=== PATIENT | female | born 1960 | race Caucasian/White ===

== ENCOUNTER 2022-08-27 12:32 | Emergency (ER) | payer OTHER, SELFPAY ==
[2022-08-27 12:47] VITALS: BP 146/73; PULSE 82; RESP 14; TEMP 37.3; O2SAT 97; BMI 19.8
--- NOTE | 2022-08-27 12:54 | DI.RAD.S_ITS ---
PROCEDURE: XR CHEST 2V INDICATIONS: cough, URI, recent covid TECHNIQUE: 2 views of the chest were acquired. COMPARISON: None. FINDINGS: Surgical changes and devices: None. Lungs and pleura: Lungs are clear. No pleural effusions or pneumothorax. Mediastinum: Mediastinal contours are normal. Heart size is normal. Bones and chest wall: No suspicious bony abnormalities. Soft tissues appear unremarkable. IMPRESSION: No acute cardiopulmonary abnormality. Dictated by: Keith Aiken M.D. on 08/27/2022 at 13:03 Approved by: Keith Aiken M.D. on 08/27/2022 at 13:11
[2022-08-27 13:42] LABS: Influenza A - CEPHEID Flu A NEGATIVE (NEGATIVE); Influenza B - CEPHEID Flu B NEGATIVE (NEGATIVE); Respiratory Syncytial Virus Negative (Negative)
--- NOTE | 2022-08-27 13:42 | ED.URI ---
HPI - URI/Sore Throat <Sayda Sullivan PA-C - Last Filed: 08/27/22 15:42> General Chief Complaint: Upper Respiratory Symptoms Stated Complaint: bronchitis Time Seen by Provider: 08/27/22 13:03 Source: patient Mode of arrival: Ambulatory History of Present Illness HPI Narrative: Patient is very pleasant 62 years old female, light smoker, cigarettes, presents with shortness of breath, cough persistent, some wheezing for last 5 days. Her cough is productive with green-yellow sputum. Her cough is worsened in p.m., coming in cough fits. She denies fever chills, admits to feeling exhausted and achy. Patient is quite concerned as she is prone to pneumonia and bronchitis, and feels that [id number] preparations are just not effective.. Related Data Previous Rx's Medication Instructions Recorded albuterol sulfate 90 mcg/actuation 1 inh inhalation QID cough #8.5 08/27/22 aerosol inhaler (Proventil HFA) grams azithromycin 250 mg tablet See Rx Instructions PO .COMPLEX #6 08/27/22 (Zithromax) tabs codeine 10 mg-guaifenesin 200 mg/5 5 ml PO Q6H PRN cough #473 mL 08/27/22 mL oral liquid inhalational spacing device #10 ea 08/27/22 (Aerochamber MV spacer) methylprednisolone 4 mg tablets in 4 mg PO DAILY #21 ea 08/27/22 a dose pack (Medrol (Darius)) Allergies Allergy/AdvReac Type Severity Reaction Status Date / Time levofloxacin [From Levaquin] Allergy Unknown Verified 08/27/22 13:58 Review of Systems <Sayda Sullivan PA-C - Last Filed: 08/27/22 15:42> Review of Systems Narrative: Pertinent review of systems is otherwise normal unless stated in HPI Patient History <Sayda Sullivan PA-C - Last Filed: 08/27/22 15:42> Social History Smoking Status: Current every day smoker Smoking Status: Current every day smoker Substance Use Type: does not use Exam <Sayda Sullivan PA-C - Last Filed: 08/27/22 15:42> Narrative Exam Narrative: GENERAL: 62 year old patient appears stated age. Well-developed patient, in mild distress due to dry cough. HEAD: Atraumatic. Normocephalic. EYES: Pupils equal round and reactive. Extraocular motions intact. No scleral icterus. No injection or drainage. ENT: Nasal passages narrowed with clear discharge. Both nostrils Without bleeding, purulent drainage. Throat with patchy erythema, there is no tonsillar hypertrophy or exudate. Airway patent. NECK: Trachea midline. Non tender CARDIOVASCULAR: Regular rate and rhythm without murmurs, gallops, or rubs. RESPIRATORY: Diffuse wheezing at posterior lobes coarse breath sounds at anterior lobes there are scattered rhonchi at posterior lobes. GASTROINTESTINAL: Abdomen soft, non-tender, nondistended. EXTREMITIES: No edema or joint tenderness. BACK: Nontender without deformity or crepitance. No flank tenderness. NEURO: AOx3. SKIN: No rash or erythema of visible areas Initial Vital Signs Initial Vital Signs: Vital Signs Temperature 99.2 F 08/27/22 12:47 Pulse Rate 82 08/27/22 12:47 Respiratory Rate 14 08/27/22 12:47 Blood Pressure 146/73 H 08/27/22 12:47 Pulse Oximetry 97 08/27/22 12:47 Oxygen Delivery Method 08/27/22 12:47 <Aman Vazquez DO - Last Filed: 08/27/22 17:55> Initial Vital Signs Initial Vital Signs: Vital Signs Temperature 99.2 F 08/27/22 12:47 Pulse Rate 82 08/27/22 12:47 Respiratory Rate 14 08/27/22 12:47 Blood Pressure 146/73 H 08/27/22 12:47 Pulse Oximetry 97 08/27/22 12:47 Oxygen Delivery Method 08/27/22 12:47 Course <Sayda Sullivan PA-C - Last Filed: 08/27/22 15:42> Orders Ordered: ED Orders 08/27/22 12:54 XR chest 2V Stat 08/27/22 12:56 Covid-19 + FLU A/B + RSV - PCR Stat Vital Signs Vital signs: Vital Signs - 8 hr 08/27/22 12:47 08/27/22 14:14 Temperature 99.2 F Pulse Rate 82 82 Respiratory Rate 14 18 Blood Pressure 146/73 H 137/75 Pulse Oximetry 97 100 Oxygen Delivery Method Room Air Room Air <Aman Vazquez DO - Last Filed: 08/27/22 17:55> Orders Ordered: ED Orders 08/27/22 12:54 XR chest 2V Stat 08/27/22 12:56 Covid-19 + FLU A/B + RSV - PCR Stat Vital Signs Vital signs: Vital Signs - 8 hr 08/27/22 12:47 08/27/22 14:14 Temperature 99.2 F Pulse Rate 82 82 Respiratory Rate 14 18 Blood Pressure 146/73 H 137/75 Pulse Oximetry 97 100 Oxygen Delivery Method Room Air Room Air MDM - URI/Sore Throat <Sayda Sullivan PA-C - Last Filed: 08/27/22 15:42> Lab Data Labs: Lab Results 08/27/22 Range/Units 12:56 SARS-CoV-2 (PCR) Negative (Negative) Influenza A (RT-PCR) Flu a negative (NEGATIVE) Influenza B (RT-PCR) Flu b negative (NEGATIVE) RSV (PCR) Negative (Negative) Imaging Data Chest x-ray: Radiologist's Impression: Lungs and pleura:? Lungs are clear.? No pleural effusions or pneumothorax.? ? Mediastinum:? Mediastinal contours are normal.? Heart size is normal.? ? Bones and chest wall:? No suspicious bony abnormalities.? Soft tissues appear unremarkable.? ? IMPRESSION:? No acute cardiopulmonary abnormality. MDM Narrative Medical decision making narrative: Imaging laboratory data reviewed. Viral panel is neg for nfluenza, covid 19 and RSV Physical exam supports diagnosis of acute bronchitis with bronchospasm, perhaps exacerbation of COPD. Vital signs are stable. Patient will be treated with Zithromax,medrol dose pack, Albuterol inhaler, cough syrup Advised to seek attention if her sx are worsened. <Aman Vazquez DO - Last Filed: 08/27/22 17:55> Lab Data Labs: Lab Results 08/27/22 Range/Units 12:56 SARS-CoV-2 (PCR) Negative (Negative) Influenza A (RT-PCR) Flu a negative (NEGATIVE) Influenza B (RT-PCR) Flu b negative (NEGATIVE) RSV (PCR) Negative (Negative) Discharge Plan Departure Patient Disposition: Home Clinical Impression: Bronchitis Upper respiratory infection Qualifiers: URI type: acute nasopharyngitis (common cold) Qualified Code(s): J00 - Acute nasopharyngitis [common cold] Instructions: DI for Bronchiolitis Activity Restrictions/Additional Instructions: *You have been diagnosed with Acute Bronchitis n setting of Upper respiratory infection ( not RSV, influenza A/B, COVID-19) *What to do: *Please continue to take your regular medications as directed. New medication prescriptions sent to your pharmacy: Z-Darius, Medrol Dosepak, albuterol inhaler, codeine of his guaifenesin cough syrup *Please follow up with your primary care provider in 2-3 days, call for an appointment. Let them know you were seen in the Emergency Department and that we ask that you be seen in follow up. We will electronically transmit a record of today's note if your PCP is in our system *If you do not have a primary care provider please contact the [facility] Resource line at [phone]. They will ask some questions about your medical history and help get you set up with a doctor in the community. *Return to Emergency Department if you should have any new, worsening or concerning symptoms, such asfever greater than 101 F, shaking chills, worsening pain, persistent vomiting or other bothersome symptoms Prescriptions: New methylprednisolone [Medrol (Darius)] 4 mg tablets,dose pack 4 mg PO DAILY Qty: 21 0RF Rx Instructions: take as directed on package azithromycin [Zithromax] 250 mg tablet See Rx Instructions .ROUTE .COMPLEX Qty: 6 0RF Rx Instructions: For 250 mg dose pack: take 500 mg today (day 1), then 250 mg for 4 days (days 2-5) albuterol sulfate [Proventil HFA] 90 mcg/actuation HFA aerosol inhaler 1 inh inhalation QID Qty: 8.5 0RF (DME) Aerochamber MV Spacer See Rx Instructions .Route Qty: 10 0RF Rx Instructions: As directed codeine-guaifenesin 10-200 mg/5 mL liquid 5 ml PO Q6H PRN (Reason: cough) Qty: 473 0RF Referrals: Abida Duarte PA-C [Primary Care Provider] - Visit Report Forms: Patient Portal/API <Aman Vazquez DO - Last Filed: 08/27/22 17:55> Cosign ED Attending Cospjature Attestation: Dr Vazquez Co-Sign Statement: I was available for consultation during this patient's emergency department visit. This chart is signed by myself for administrative purposes only. I did not have direct contact with this patient during this visit. They were seen independently by the APC.
[2022-08-27 13:43] LABS: COVID-19 CEPHEID 4-PLEX PCR Negative (Negative)
[2022-08-27 14:14] VITALS: BP 137/75; PULSE 82; RESP 18; O2SAT 100
== END 2022-08-27 14:17 | disposition home or self-care (01) ==
PROVIDERS: Emergency Medicine; Emergency Provider Physician Assistant Medical; PCP Physician Assistant Medical
DX: J40 Bronchitis, not specified as acute or chronic (principal); Z20.822 Contact with and (suspected) exposure to COVID-19
CPT/HCPCS: 0241U; 71046; 99283

== ENCOUNTER 2022-09-07 12:40 | Emergency (ER) | payer OTHER, SELFPAY ==
--- NOTE | 2022-09-07 12:47 | PC.NURSE ---
called for triage. Not in waiting room. Registration states she went outside.
[2022-09-07 13:09] VITALS: BP 122/80; PULSE 118; RESP 24; TEMP 37.7; O2SAT 98; BMI 22.6
--- NOTE | 2022-09-07 13:16 | DI.RAD.S_ITS ---
PROCEDURE: XR CHEST 1V INDICATIONS: Suspected sepsis TECHNIQUE: One view of the chest was acquired. COMPARISON: None. FINDINGS: Surgical changes and devices: None. Lungs and pleura: Lungs are clear. No pleural effusions or pneumothorax. Mediastinum: Mediastinal contours appear normal. Heart size is normal. Bones and chest wall: No suspicious bony lesions. Overlying soft tissues appear unremarkable. IMPRESSION: No acute cardiopulmonary process demonstrated radiographically. Dictated by: Melecio Hopson M.D. on 09/07/2022 at 13:43 Approved by: Melecio Hopson M.D. on 09/07/2022 at 13:44
[2022-09-07 13:43] LABS: Add Manual Diff / Slide Review NO; Basophils Absolute Auto 100 /uL (0-100); Basophils Percent Auto 1.5 % (0-2); Eosinophils Absolute Auto 300 /uL (0-450); Eosinophils Percent Auto 3.8 % (2-4); Hematocrit 38.9 % (36-46); Hemoglobin 13.4 g/dL (12.0-16.0); Lymphocytes Absolute Auto 2300 /uL (1100-4500); Lymphocytes Percent Auto 25.2 % (25-40); Mean Corpuscular HGB Conc 34.5 % (30-36); Mean Corpuscular Hemoglobin 34.3 PG (26-34); Mean Corpuscular Volume 99.5 fL (80-100); Monocytes Absolute Auto 700 /uL (0-900); Monocytes Percent Auto 8.1 % (3-14); Neutrophils Absolute Auto 5500 /uL (1500-7000); Neutrophils Percent Auto 61.4 % (50-75); Platelet Count 409 X10^3/uL (150-400); Red Blood Cell Count 3.91 X10^6/uL (4.0-5.2); Red Cell Distribution Width 13.2 % (11.6-14.8); White Blood Cell Count 8.9 X10^3/uL (4.5-11.0)
--- NOTE | 2022-09-07 13:48 | ED.FEVER ---
HPI - Fever <Lupe Tolentino PA-C - Last Filed: 09/07/22 20:06> General Chief Complaint: Fever Stated Complaint: Bronchitis, Worsening Time Seen by Provider: 09/07/22 13:29 Source: patient Mode of arrival: Ambulatory History of Present Illness HPI Narrative: 62-year-old female, current smoker presents to the ED for cough, diarrhea. Patient was seen in the ED on 08/27/2022, diagnosed with acute bronchitis. Patient states that she took the medications as prescribed, however her symptoms have minimally improved. Patient endorses subjective fever, chills, cough, intermittent nausea, vomiting once a day, diarrhea. Patient denies chest pain, shortness of breath. Patient states that she is also currently extremely depressed due to being newly homeless, lives in a hotel, is all alone by herself. Patient is asking to be started on antidepressants today in the ED and to get a psych consult. Patient denies suicidal ideation, homicidal ideation. Related Data Previous Rx's Medication Instructions Recorded albuterol sulfate 90 mcg/actuation 1 inh inhalation QID cough #8.5 08/27/22 aerosol inhaler (Proventil HFA) grams azithromycin 250 mg tablet See Rx Instructions PO .COMPLEX #6 08/27/22 (Zithromax) tabs codeine 10 mg-guaifenesin 200 mg/5 5 ml PO Q6H PRN cough #473 mL 08/27/22 mL oral liquid inhalational spacing device #10 ea 08/27/22 (Aerochamber MV spacer) methylprednisolone 4 mg tablets in 4 mg PO DAILY #21 ea 08/27/22 a dose pack (Medrol (Darius)) codeine 6.3 mg-guaifenesin 100 8 ml PO Q6H PRN cough 7 days #473 09/07/22 mg/5 mL oral liquid mL nitrofurantoin 100 mg PO Q12H 5 days #10 caps 09/07/22 monohydrate/macrocrystals 100 mg capsule (Macrobid) Allergies Allergy/AdvReac Type Severity Reaction Status Date / Time levofloxacin [From Levaquin] Allergy Unknown Verified 09/07/22 13:15 Review of Systems <Lupe Tolentino PA-C - Last Filed: 09/07/22 20:06> Review of Systems ROS Unobtainable: All systems reviewed & are unremarkable except as noted in HPI and below Constitutional Constitutional: Reports chills, Reports fatigue, Reports fever(s), Denies frequent falls, Denies lethargy and Denies weakness Eyes Eyes: Denies change in vision, Denies eye discharge, Denies irritation and Denies loss of vision ENT Ears, Nose, Mouth, and Throat: Denies change in voice, Denies dizziness, Denies neck pain, Denies sore throat and Denies throat swelling Cardiovascular Cardiovascular: Denies chest pain, Denies irregular heart rhythm, Denies lightheadedness, Denies palpitations, Denies dyspnea, Denies dyspnea on exertion and Denies orthopnea Respiratory Respiratory: Reports cough, Denies dyspnea, Denies dyspnea on exertion and Denies wheezing Gastrointestinal Gastrointestinal: Denies abdominal pain, Denies change in bowel habits, Reports diarrhea, Reports nausea and Reports vomiting Genitourinary Genitourinary: Denies hematuria, Denies flank pain, Denies urinary incontinence and Denies urinary urgency Musculoskeletal Musculoskeletal: Denies back pain, Denies muscle weakness, Denies neck pain, Denies numbness and Denies tingling Integumentary/Breasts Skin/Breast: Denies pruritus, Denies erythema, Denies rash and Denies wounds Neurologic Neurologic: Denies behavioral changes, Denies confusion, Denies dizziness, Denies frequent falls, Denies loss of vision, Denies numbness, Denies tingling and Denies weakness Psychiatric Psychiatric: Denies anxiety, Denies behavioral changes, Denies confusion, Denies depression, Denies homicidal ideation and Denies suicidal ideation Endocrine Endocrine: Reports fatigue, Denies flushing and Denies palpitations Hematologic/Lymphatic Hematologic/Lymphatic: Denies easy bruising Allergic/Immunologic Allergic/Immunologic: Denies urticaria, Denies throat swelling and Denies wheezing Patient History <Lupe Tolentino PA-C - Last Filed: 09/07/22 20:06> Social History Smoking Status: Current every day smoker Smoking Status: Current every day smoker Substance Use Type: does not use Exam <Lupe Tolentino PA-C - Last Filed: 09/07/22 20:06> Narrative Exam Narrative: Const General:?cooperative, healthy appearing and comfortable HENPA Head:?normal to inspection Ears:?hearing grossly normal bilaterally Nose:?external nose normal Face and sinus:?normal facial exam and sinuses nontender Mouth:?oral mucosae normal Throat:?posterior oropharynx normal Eyes General:?appearance normal, both eyes and all related structures Neck Neck:?normal visual inspection and no lymphadenopathy noted Resp Effort & Inspection:?normal respiratory effort Auscultation:?clear to auscultation bilaterally Cardio Rate:?regular rate Rhythm:?regular rhythm GI Abdomen is soft, nondistended, nontender to palpation. No CVA tenderness. Neuro General:?patient alert, patient awake and patient oriented x3 Initial Vital Signs Initial Vital Signs: Vital Signs Temperature 99.8 F H 09/07/22 13:09 Pulse Rate 118 H 09/07/22 13:09 Respiratory Rate 24 09/07/22 13:09 Blood Pressure 122/80 09/07/22 13:09 Pulse Oximetry 98 09/07/22 13:09 Oxygen Delivery Method 09/07/22 13:09 <Aman Vazquez DO - Last Filed: 09/08/22 07:16> Initial Vital Signs Initial Vital Signs: Vital Signs Temperature 99.8 F H 09/07/22 13:09 Pulse Rate 118 H 09/07/22 13:09 Respiratory Rate 24 09/07/22 13:09 Blood Pressure 122/80 09/07/22 13:09 Pulse Oximetry 98 09/07/22 13:09 Oxygen Delivery Method 09/07/22 13:09 Course <Lupe Tolentino PA-C - Last Filed: 09/07/22 20:06> Orders Ordered: Discontinued Medications Sodium Chloride (Normal Saline 0.9%) 1,000 mls @ 1,000 mls/hr IV BOLUS ONE Stop: 09/07/22 14:14 Last Infusion: 09/07/22 15:13 Dose: 0 mls/hr Documented By: Infusion: 09/07/22 15:13 Dose: 0 mls/hr Documented By: Admin: 09/07/22 14:20 Dose: 1,000 mls/hr Documented By: AVINASH Ondansetron HCl (Ondansetron 4 Mg/2 Ml Inj) 4 mg IV NOW PRN PRN Reason: Nausea And Vomiting Vital Signs Vital signs: Vital Signs - 8 hr 09/07/22 13:09 09/07/22 15:11 Temperature 99.8 F H Pulse Rate 118 H 103 H Respiratory Rate 24 20 Blood Pressure 122/80 Pulse Oximetry 98 99 Oxygen Delivery Method Room Air Room Air <Aman Vazquez DO - Last Filed: 09/08/22 07:16> Orders Ordered: Discontinued Medications Sodium Chloride (Normal Saline 0.9%) 1,000 mls @ 1,000 mls/hr IV BOLUS ONE Stop: 09/07/22 14:14 Last Infusion: 09/07/22 15:13 Dose: 0 mls/hr Documented By: Infusion: 09/07/22 15:13 Dose: 0 mls/hr Documented By: Admin: 09/07/22 14:20 Dose: 1,000 mls/hr Documented By: AVINASH Ondansetron HCl (Ondansetron 4 Mg/2 Ml Inj) 4 mg IV NOW PRN PRN Reason: Nausea And Vomiting Vital Signs Vital signs: Vital Signs - 8 hr 09/07/22 13:09 09/07/22 15:11 Temperature 99.8 F H Pulse Rate 118 H 103 H Respiratory Rate 24 20 Blood Pressure 122/80 Pulse Oximetry 98 99 Oxygen Delivery Method Room Air Room Air MDM - Fever <Lupe Tolentino PA-C - Last Filed: 09/07/22 20:06> Lab Data Result diagrams: 09/07/22 13:27 09/07/22 13:27 Labs: Lab Results 09/07/22 09/07/22 09/07/22 Range/Units 13:27 13:27 13:27 WBC 8.9 (4.5-11.0) X10^3/uL RBC 3.91 L (4.0-5.2) X10^6/uL Hgb 13.4 (12.0-16.0) g/dL Hct 38.9 (36-46) % MCV 99.5 (80-100) fL MCH 34.3 H (26-34) PG MCHC 34.5 (30-36) % RDW 13.2 (11.6-14.8) % Plt Count 409 H (150-400) X10^3/uL Neut % (Auto) 61.4 (50-75) % Lymph % (Auto) 25.2 (25-40) % [place] % (Auto) 8.1 (3-14) % Eos % (Auto) 3.8 (2-4) % Baso % (Auto) 1.5 (0-2) % Neut # (Auto) 5500 (0529-2728) /uL Lymph # (Auto) 2300 (6999-5713) /uL [place] # (Auto) 700 (0-900) /uL Eos # (Auto) 300 (0-450) /uL Baso # (Auto) 100 (0-100) /uL PT 11.3 (10.1-12.7) SECONDS INR 1.0 (0.9-1.3) APTT 26 (26-36) SECONDS Sodium 134 L (137-145) mmol/L Potassium 4.2 (3.4-5.1) mmol/L Chloride 102 (98-107) mmol/L Carbon Dioxide 25 (22-32) mmol/L BUN 25 H (7-17) mg/dL Creatinine 0.66 (0.52-1.04) mg/dL Estimated GFR > 60 (>60) mL/min BUN/Creatinine Ratio 37.9 H (6-22) Glucose 102 (80-110) mg/dL Lactate (0.7-2.1) mmol/L Calcium 9.6 (8.4-10.2) mg/dL Total Bilirubin 0.3 (0.2-1.3) mg/dL AST 26 (14-36) IU/L ALT 30 (<35) IU/L Alkaline Phosphatase 51 (38-126) U/L Total Protein 7.2 (6.3-8.2) g/dL Albumin 4.4 (3.5-5.0) g/dL Globulin 2.8 (1.7-4.1) g/dL Albumin/Globulin Ratio 1.6 (1.0-2.8) Lipase 170 (23-300) U/L Procalcitonin 0.05 (<0.5) ng/mL Urine RBC (0-5/HPF) Urine WBC (0-5/HPF) Urine Bacteria (None) Ur Culture Indicated? SARS-CoV-2 (PCR) (Negative) Influenza A (RT-PCR) (NEGATIVE) Influenza B (RT-PCR) (NEGATIVE) RSV (PCR) (Negative) 09/07/22 09/07/22 09/07/22 Range/Units 13:27 13:27 14:23 WBC (4.5-11.0) X10^3/uL RBC (4.0-5.2) X10^6/uL Hgb (12.0-16.0) g/dL Hct (36-46) % MCV (80-100) fL MCH (26-34) PG MCHC (30-36) % RDW (11.6-14.8) % Plt Count (150-400) X10^3/uL Neut % (Auto) (50-75) % Lymph % (Auto) (25-40) % [place] % (Auto) (3-14) % Eos % (Auto) (2-4) % Baso % (Auto) (0-2) % Neut # (Auto) (6829-6187) /uL Lymph # (Auto) (6450-4283) /uL [place] # (Auto) (0-900) /uL Eos # (Auto) (0-450) /uL Baso # (Auto) (0-100) /uL PT (10.1-12.7) SECONDS INR (0.9-1.3) APTT (26-36) SECONDS Sodium (137-145) mmol/L Potassium (3.4-5.1) mmol/L Chloride (98-107) mmol/L Carbon Dioxide (22-32) mmol/L BUN (7-17) mg/dL Creatinine (0.52-1.04) mg/dL Estimated GFR (>60) mL/min BUN/Creatinine Ratio (6-22) Glucose (80-110) mg/dL Lactate 0.8 (0.7-2.1) mmol/L Calcium (8.4-10.2) mg/dL Total Bilirubin (0.2-1.3) mg/dL AST (14-36) IU/L ALT (<35) IU/L Alkaline Phosphatase (38-126) U/L Total Protein (6.3-8.2) g/dL Albumin (3.5-5.0) g/dL Globulin (1.7-4.1) g/dL Albumin/Globulin Ratio (1.0-2.8) Lipase (23-300) U/L Procalcitonin (<0.5) ng/mL Urine RBC None seen (0-5/HPF) Urine WBC 5-10/hpf H (0-5/HPF) Urine Bacteria Few (2-10) H (None) Ur Culture Indicated? Specimen cultured SARS-CoV-2 (PCR) Positive H (Negative) Influenza A (RT-PCR) Flu a negative (NEGATIVE) Influenza B (RT-PCR) Flu b negative (NEGATIVE) RSV (PCR) Negative (Negative) Urine Dip Bedside Urine Glucose Negative Bedside Urine Bilirubin - Negative Bedside Urine Ketone - Negative Urine Specific [place] 1.010 Bedside Urine Occult Blood - Negative Bedside Urine pH 6 Bedside Urine Protein - Negative Bedside Urine Urobilinogen - Negative Bedside Urine Nitrite - Negative Bedside Urine Leukocytes + 70 Esterase Imaging Data Chest x-ray: Radiologist's Impression: PROCEDURE:? XR CHEST 1V ? INDICATIONS:? Suspected sepsis ? TECHNIQUE:? One view of the chest was acquired.? ? COMPARISON:? None. ? FINDINGS:? ? Surgical changes and devices:? None.? ? Lungs and pleura:? Lungs are clear.? No pleural effusions or pneumothorax.? ? Mediastinum:? Mediastinal contours appear normal.? Heart size is normal.? ? Bones and chest wall:? No suspicious bony lesions.? Overlying soft tissues appear unremarkable.? ? IMPRESSION:? No acute cardiopulmonary process demonstrated radiographically. ? ? Dictated by: Melecio Hopson M.D. on 09/07/2022 at 13:43 ? ? Approved by: Melecio Hopson M.D. on 09/07/2022 at 13:44 ? [facility] Narrative Medical decision making narrative: 62-year-old female, current smoker presents to the ED for cough, diarrhea. Concern for URI versus bronchitis versus pneumonia versus other. Workup was obtained, chest x-ray negative for pneumonia, labs within normal limits. Patient tested positive for COVID-19. UA was positive for UTI. Patient was stable through the ED stay. Patient prescribed cough medication, antibiotic for the UTI. Social work consulted for psych resources. ED return precautions were discussed with patient. Patient verbalized understanding. <Aman Vazquez, DO - Last Filed: 09/08/22 07:16> Lab Data Labs: Lab Results 09/07/22 09/07/22 09/07/22 Range/Units 13:27 13:27 13:27 WBC 8.9 (4.5-11.0) X10^3/uL RBC 3.91 L (4.0-5.2) X10^6/uL Hgb 13.4 (12.0-16.0) g/dL Hct 38.9 (36-46) % MCV 99.5 (80-100) fL MCH 34.3 H (26-34) PG MCHC 34.5 (30-36) % RDW 13.2 (11.6-14.8) % Plt Count 409 H (150-400) X10^3/uL Neut % (Auto) 61.4 (50-75) % Lymph % (Auto) 25.2 (25-40) % [place] % (Auto) 8.1 (3-14) % Eos % (Auto) 3.8 (2-4) % Baso % (Auto) 1.5 (0-2) % Neut # (Auto) 5500 (2686-9080) /uL Lymph # (Auto) 2300 (7961-6108) /uL [place] # (Auto) 700 (0-900) /uL Eos # (Auto) 300 (0-450) /uL Baso # (Auto) 100 (0-100) /uL PT 11.3 (10.1-12.7) SECONDS INR 1.0 (0.9-1.3) APTT 26 (26-36) SECONDS Sodium 134 L (137-145) mmol/L Potassium 4.2 (3.4-5.1) mmol/L Chloride 102 (98-107) mmol/L Carbon Dioxide 25 (22-32) mmol/L BUN 25 H (7-17) mg/dL Creatinine 0.66 (0.52-1.04) mg/dL Estimated GFR > 60 (>60) mL/min BUN/Creatinine Ratio 37.9 H (6-22) Glucose 102 (80-110) mg/dL Lactate (0.7-2.1) mmol/L Calcium 9.6 (8.4-10.2) mg/dL Total Bilirubin 0.3 (0.2-1.3) mg/dL AST 26 (14-36) IU/L ALT 30 (<35) IU/L Alkaline Phosphatase 51 (38-126) U/L Total Protein 7.2 (6.3-8.2) g/dL Albumin 4.4 (3.5-5.0) g/dL Globulin 2.8 (1.7-4.1) g/dL Albumin/Globulin Ratio 1.6 (1.0-2.8) Lipase 170 (23-300) U/L Procalcitonin 0.05 (<0.5) ng/mL Urine RBC (0-5/HPF) Urine WBC (0-5/HPF) Urine Bacteria (None) Ur Culture Indicated? SARS-CoV-2 (PCR) (Negative) Influenza A (RT-PCR) (NEGATIVE) Influenza B (RT-PCR) (NEGATIVE) RSV (PCR) (Negative) 09/07/22 09/07/22 09/07/22 Range/Units 13:27 13:27 14:23 WBC (4.5-11.0) X10^3/uL RBC (4.0-5.2) X10^6/uL Hgb (12.0-16.0) g/dL Hct (36-46) % MCV (80-100) fL MCH (26-34) PG MCHC (30-36) % RDW (11.6-14.8) % Plt Count (150-400) X10^3/uL Neut % (Auto) (50-75) % Lymph % (Auto) (25-40) % [place] % (Auto) (3-14) % Eos % (Auto) (2-4) % Baso % (Auto) (0-2) % Neut # (Auto) (9847-5982) /uL Lymph # (Auto) (8472-2900) /uL [place] # (Auto) (0-900) /uL Eos # (Auto) (0-450) /uL Baso # (Auto) (0-100) /uL PT (10.1-12.7) SECONDS INR (0.9-1.3) APTT (26-36) SECONDS Sodium (137-145) mmol/L Potassium (3.4-5.1) mmol/L Chloride (98-107) mmol/L Carbon Dioxide (22-32) mmol/L BUN (7-17) mg/dL Creatinine (0.52-1.04) mg/dL Estimated GFR (>60) mL/min BUN/Creatinine Ratio (6-22) Glucose (80-110) mg/dL Lactate 0.8 (0.7-2.1) mmol/L Calcium (8.4-10.2) mg/dL Total Bilirubin (0.2-1.3) mg/dL AST (14-36) IU/L ALT (<35) IU/L Alkaline Phosphatase (38-126) U/L Total Protein (6.3-8.2) g/dL Albumin (3.5-5.0) g/dL Globulin (1.7-4.1) g/dL Albumin/Globulin Ratio (1.0-2.8) Lipase (23-300) U/L Procalcitonin (<0.5) ng/mL Urine RBC None seen (0-5/HPF) Urine WBC 5-10/hpf H (0-5/HPF) Urine Bacteria Few (2-10) H (None) Ur Culture Indicated? Specimen cultured SARS-CoV-2 (PCR) Positive H (Negative) Influenza A (RT-PCR) Flu a negative (NEGATIVE) Influenza B (RT-PCR) Flu b negative (NEGATIVE) RSV (PCR) Negative (Negative) Urine Dip Bedside Urine Glucose Negative Bedside Urine Bilirubin - Negative Bedside Urine Ketone - Negative Urine Specific [place] 1.010 Bedside Urine Occult Blood - Negative Bedside Urine pH 6 Bedside Urine Protein - Negative Bedside Urine Urobilinogen - Negative Bedside Urine Nitrite - Negative Bedside Urine Leukocytes + 70 Esterase Discharge Plan Departure Patient Disposition: Home Clinical Impression: COVID-19 Instructions: COVID-19 Activity Restrictions/Additional Instructions: You were evaluated in the ED today for bronchitis. You tested positive for COVID. Your bronchitis is likely from the COVID-19 infection. You may continue to take cough medications, use your albuterol inhaler as needed. You were also diagnosed with a urinary tract infection for which you are being prescribed antibiotics. Please complete the full course of antibiotics. Return to the ED if you experience shortness of breath, chest pain. Prescriptions: New nitrofurantoin monohyd/m-cryst [Macrobid] 100 mg capsule 100 mg PO Q12H 5 Days Qty: 10 0RF Rx Instructions: must administer with a meal/food codeine-guaifenesin 6.3-100 mg/5 mL liquid 8 ml PO Q6H PRN (Reason: cough) 7 Days Qty: 473 0RF No Action methylprednisolone [Medrol (Darius)] 4 mg tablets,dose pack 4 mg PO DAILY Qty: 21 0RF Rx Instructions: take as directed on package azithromycin [Zithromax] 250 mg tablet See Rx Instructions .ROUTE .COMPLEX Qty: 6 0RF Rx Instructions: For 250 mg dose pack: take 500 mg today (day 1), then 250 mg for 4 days (days 2-5) albuterol sulfate [Proventil HFA] 90 mcg/actuation HFA aerosol inhaler 1 inh inhalation QID Qty: 8.5 0RF (DME) Aerochamber MV Spacer See Rx Instructions .Route Qty: 10 0RF Rx Instructions: As directed codeine-guaifenesin 10-200 mg/5 mL liquid 5 ml PO Q6H PRN (Reason: cough) Qty: 473 0RF Referrals: Abida Duarte PA-C [Primary Care Provider] - Visit Report Forms: Patient Portal/API <Aman Vazquez DO - Last Filed: 09/08/22 07:16> Cosign ED Attending Cosignature Attestation: Dr Vazquez Co-Sign Statement: I was available for consultation during this patient's emergency department visit. This chart is signed by myself for administrative purposes only. I did not have direct contact with this patient during this visit. They were seen independently by the APC.
[2022-09-07 13:52] LABS: Prothrombin Time 11.3 SECONDS (10.1-12.7)
[2022-09-07 13:55] LABS: PTT Partial Thromboplastin Tim 26 SECONDS (26-36)
[2022-09-07 14:01] LABS: Lactate (Lactic Acid) 0.8 mmol/L (0.7-2.1)
[2022-09-07 14:02] LABS: Alanine Aminotransferase 30 IU/L (<35); Albumin 4.4 g/dL (3.5-5.0); Albumin Globulin Ratio 1.6 (1.0-2.8); Alkaline Phosphatase 51 U/L (38-126); Aspartate Aminotransferase 26 IU/L (14-36); BUN Creatinine Ratio 37.9 (6-22); Bilirubin Total 0.3 mg/dL (0.2-1.3); Blood Urea Nitrogen 25 mg/dL (7-17); Calcium 9.6 mg/dL (8.4-10.2); Carbon Dioxide 25 mmol/L (22-32); Chloride 102 mmol/L (98-107); Estimated Glomerular Filt Rate > 60 mL/min (>60); Globulin 2.8 g/dL (1.7-4.1); Glucose 102 mg/dL (80-110); Lipase 170 U/L (23-300); Potassium 4.2 mmol/L (3.4-5.1); Sodium 134 mmol/L (137-145); Total Protein 7.2 g/dL (6.3-8.2)
[2022-09-07 14:20] LABS: HEMOLYSIS < 15 (0-50); Procalcitonin 0.05 ng/mL (<0.5)
[2022-09-07] MEDS: SODIUM CHLORIDE 0.9% 1,000 ML 1000 ML IV (14:20)
[2022-09-07 14:23] LABS: Influenza A - CEPHEID Flu A NEGATIVE (NEGATIVE); Influenza B - CEPHEID Flu B NEGATIVE (NEGATIVE); Respiratory Syncytial Virus Negative (Negative)
[2022-09-07 14:28] LABS: COVID-19 CEPHEID 4-PLEX PCR POSITIVE (Negative)
[2022-09-07 14:58] LABS: RBC Urine None Seen (0-5/HPF); WBC Urine 5-10/HPF (0-5/HPF)
[2022-09-07 14:59] LABS: Bacteria Urine Few (2-10); Culture Indicated Urine Specimen Cultured
[2022-09-07 15:11] VITALS: PULSE 103; RESP 20; O2SAT 99
[2022-09-10 09:13] LABS: Acinetobacter baumannii Not Detected (Not Detect); Enterococcus species Not Detected (Not Detect); Listeria monocytogenes Not Detected (Not Detect); Staphylococcus species Not Detected (Not Detect); Streptococcus agalactiae (Gr B Not Detected (Not Detect); Streptococcus pneumonia Not Detected (Not Detect); Streptococcus pyogenes (Gr A) Not Detected (Not Detect); Streptococcus species Not Detected (Not Detect)
[2022-09-10 09:14] LABS: Candida albicans Not Detected (Not Detect); Candida glabrata Not Detected (Not Detect); Candida krusei Not Detected (Not Detect); Candida parapsilosis Not Detected (Not Detect); Candida tropicalis Not Detected (Not Detect); E. coli Not Detected (Not Detect); Enterobacter cloacae complex Not Detected (Not Detect); Enterobacteriaceae species Not Detected (Not Detect); Haemophilus influenzae Not Detected (Not Detect); Neisseria meningitidis Not Detected (Not Detect); Proteus species Not Detected (Not Detect); Pseudomonas aeruginosa Not Detected (Not Detect); Serratia marcescens Not Detected (Not Detect)
== END 2022-09-07 15:20 | disposition home or self-care (01) ==
PROVIDERS: Emergency Medicine; Emergency Provider Student in an Organized Health Care Education/Training Program; PCP Physician Assistant Medical
DX: U07.1 COVID-19 (principal); Z79.899 Other long term (current) drug therapy
CPT/HCPCS: 0241U; 36415; 71045; 80053; 81003; 81015; 83605; 83690; 84145; 85025; 85610; 85730; 87040; 87086; 87150; 93005; 93010; 99284

== ENCOUNTER 2022-09-18 11:31 | Emergency (ER) | payer OTHER, SELFPAY ==
[2022-09-18 11:42] VITALS: BP 156/86; PULSE 86; RESP 18; TEMP 37.1; O2SAT 98; BMI 21.7
[2022-09-18 13:06] LABS: Bacteria Urine None Seen; RBC Urine 1-5/HPF (0-5/HPF); Squamous Epithelial Cell Urine 1-5 /HPF (0-5/HPF); Transitional Epi Cells Urine 1-5/HPF (0-5/HPF); WBC Urine 1-5/HPF (0-5/HPF)
--- NOTE | 2022-09-18 14:14 | ED.GENADULT ---
HPI - General Adult General Chief complaint: Urogenital-Female Stated complaint: restested for UTI/covid/bronchitis Time Seen by Provider: 09/18/22 13:46 Source: patient Mode of arrival: Ambulatory History of Present Illness HPI narrative: 62-year-old female daily smoker presents due to ongoing urinary symptoms including dysuria, frequency and urgency. She denies any fever, shaking chills or back pain. She denies vaginal bleeding or discharge. She states that she has had COVID 4 times since June and has had ongoing episodes of nasal congestion, runny nose, sneezing, sore throat and cough. Related Data Previous Rx's Medication Instructions Recorded albuterol sulfate 90 mcg/actuation 1 inh inhalation QID cough #8.5 08/27/22 aerosol inhaler (Proventil HFA) grams azithromycin 250 mg tablet See Rx Instructions PO .COMPLEX #6 08/27/22 (Zithromax) tabs codeine 10 mg-guaifenesin 200 mg/5 5 ml PO Q6H PRN cough #473 mL 08/27/22 mL oral liquid inhalational spacing device #10 ea 08/27/22 (Aerochamber MV spacer) methylprednisolone 4 mg tablets in 4 mg PO DAILY #21 ea 08/27/22 a dose pack (Medrol (Darius)) cephalexin 500 mg capsule 500 mg PO Q6H 7 days #28 caps 09/18/22 Allergies Allergy/AdvReac Type Severity Reaction Status Date / Time levofloxacin [From Levaquin] Allergy Unknown Verified 09/18/22 11:47 Review of Systems Review of Systems Narrative: GENERAL: See HPI HEENT: See HPI RESPIRATORY: See HPI CARDIOVASCULAR: Denies chest pain, palpitations, orthopnea, edema, GASTROINTESTINAL: Denies nausea, vomiting, abdominal pain, diarrhea, constipation, melena. : See HPI MUSCULOSKELETAL: denies weakness, joint pain, or bony pain SKIN: Denies rash, skin lesions, or other NEUROLOGIC: Denies weakness, headache, numbness, change in speech, confusion, seizures, incoordination. PSYCHIATRIC: No concerning psychosocial issues. 12 point review of systems is negative except for those stated above Patient History Social History Smoking Status: Current every day smoker Smoking Status: Current every day smoker Substance Use Type: does not use Exam Narrative Exam Narrative: GENERAL: [62] year old patient appears stated age. Well-developed patient, in mild distress. HEAD: Atraumatic. Normocephalic. EYES: Pupils equal round and reactive. Extraocular motions intact. No scleral icterus. No injection or drainage. ENT: Nose without bleeding, purulent drainage. Throat without erythema, tonsillar hypertrophy or exudate. Airway patent. NECK: Trachea midline. Non tender CARDIOVASCULAR: Regular rate and rhythm without murmurs, gallops, or rubs. RESPIRATORY: Clear to auscultation. Breath sounds equal bilaterally. No wheezes, rales, or rhonchi. GASTROINTESTINAL: Abdomen soft, non-tender, nondistended. EXTREMITIES: No edema or joint tenderness. BACK: Nontender without deformity or crepitance. No flank tenderness. NEURO: AOx3. SKIN: No rash or erythema of visible areas Initial Vital Signs Initial Vital Signs: Vital Signs Temperature 98.8 F 09/18/22 11:42 Pulse Rate 86 09/18/22 11:42 Respiratory Rate 18 09/18/22 11:42 Blood Pressure 156/86 H 09/18/22 11:42 Pulse Oximetry 98 09/18/22 11:42 Oxygen Delivery Method 09/18/22 11:42 Course Orders Ordered: ED Orders 09/18/22 11:51 Urine Culture Stat Urine Microscopic Stat 09/18/22 14:00 Covid-19 + FLU A/B + RSV - PCR Stat Vital Signs Vital signs: Vital Signs - 8 hr 09/18/22 11:42 09/18/22 14:37 Temperature 98.8 F 98.1 F Pulse Rate 86 78 Respiratory Rate 18 14 Blood Pressure 156/86 H 144/78 H Pulse Oximetry 98 99 Oxygen Delivery Method Room Air Room Air Medical Decision Making Lab Data Labs: Lab Results 09/18/22 09/18/22 Range/Units 11:51 14:00 Urine RBC 1-5/hpf (0-5/HPF) Urine WBC 1-5/hpf (0-5/HPF) Ur Squamous Epith Cells 1-5 /hpf (0-5/HPF) Ur Transition Epith Cell 1-5/hpf (0-5/HPF) Urine Bacteria None seen (None) SARS-CoV-2 (PCR) Negative (Negative) Influenza A (RT-PCR) Flu a negative (NEGATIVE) Influenza B (RT-PCR) Flu b negative (NEGATIVE) RSV (PCR) Negative (Negative) Urine Dip Bedside Urine Glucose Negative Bedside Urine Bilirubin - Negative Bedside Urine Ketone - Negative Urine Specific [place] 1.015 Bedside Urine Occult Blood - Negative Bedside Urine pH 6.0 Bedside Urine Protein - Negative Bedside Urine Urobilinogen +/- 1mg Bedside Urine Nitrite - Negative Bedside Urine Leukocytes + 70 Esterase Point of care testing: Urine Dip Bedside Urine Glucose Negative Bedside Urine Bilirubin - Negative Bedside Urine Ketone - Negative Urine Specific [place] 1.015 Bedside Urine Occult Blood - Negative Bedside Urine pH 6.0 Bedside Urine Protein - Negative Bedside Urine Urobilinogen +/- 1mg Bedside Urine Nitrite - Negative Bedside Urine Leukocytes + 70 Esterase Discharge Plan Departure Patient Disposition: Home Clinical Impression: UTI (urinary tract infection), Viral URI Instructions: DI for Urinary Tract Infection (UTI) Activity Restrictions/Additional Instructions: *You have been diagnosed with [urinary tract infection and viral upper respiratory infection. As we discussed your respiratory panel is pending and we will call you with positive findings, you also may sign into the patient portal to gain access. Either way, there is no specific treatment or intervention for your respiratory complaints] *What to do: *Please continue to take your regular medications as directed. [x ] New medication prescriptions sent to your pharmacy: [[facility] ] [ ] New medication written as a paper prescription [ ] No new medications given *Please follow up with your primary care provider in 2-3 days, call for an appointment. Let them know you were seen in the Emergency Department and that we ask that you be seen in follow up. We will electronically transmit a record of today's note if your PCP is in our system *Return to Emergency Department if you should have any new, worsening or concerning symptoms, such as [fever greater than 101 F, shaking chills, worsening pain, persistent vomiting or other bothersome symptoms] Prescriptions: New cephalexin 500 mg capsule 500 mg PO Q6H 7 Days Qty: 28 0RF No Action methylprednisolone [Medrol (Darius)] 4 mg tablets,dose pack 4 mg PO DAILY Qty: 21 0RF Rx Instructions: take as directed on package azithromycin [Zithromax] 250 mg tablet See Rx Instructions .ROUTE .COMPLEX Qty: 6 0RF Rx Instructions: For 250 mg dose pack: take 500 mg today (day 1), then 250 mg for 4 days (days 2-5) albuterol sulfate [Proventil HFA] 90 mcg/actuation HFA aerosol inhaler 1 inh inhalation QID Qty: 8.5 0RF (DME) Aerochamber MV Spacer See Rx Instructions .Route Qty: 10 0RF Rx Instructions: As directed codeine-guaifenesin 10-200 mg/5 mL liquid 5 ml PO Q6H PRN (Reason: cough) Qty: 473 0RF Referrals: Abida Duarte PA-C [Primary Care Provider] - Visit Report Forms: Patient Portal/API
[2022-09-18 14:37] VITALS: BP 144/78; PULSE 78; RESP 14; TEMP 36.7; O2SAT 99
[2022-09-18 15:01] LABS: Influenza A - CEPHEID Flu A NEGATIVE (NEGATIVE); Influenza B - CEPHEID Flu B NEGATIVE (NEGATIVE); Respiratory Syncytial Virus Negative (Negative)
[2022-09-18 15:34] LABS: COVID-19 CEPHEID 4-PLEX PCR Negative (Negative)
== END 2022-09-18 14:39 | disposition home or self-care (01) ==
PROVIDERS: Emergency Provider Emergency Medicine; PCP Physician Assistant Medical
DX: N39.0 Urinary tract infection, site not specified (principal); B34.9 Viral infection, unspecified; Z20.822 Contact with and (suspected) exposure to COVID-19; Z86.16 Personal history of COVID-19
CPT/HCPCS: 0241U; 81003; 81015; 87086; 99282